=== PATIENT | male | born 1980 | race Caucasian/White ===

== ENCOUNTER 2021-02-20 20:19 | Emergency (ER) | payer BC ==
[~2021-02-20] VITALS: Ht 167.6 cm; Wt 79.8 kg
[2021-02-20 20:32] VITALS: BP 150/87
--- NOTE | 2021-02-20 20:32 | NUR ---
to bed ambulatory
--- NOTE | 2021-02-20 20:40 | NUR ---
RECEIVED IN BED 2 WITH C/O EYE PAIN AFTER SOAP PACKAGE WENT INTO OD. REDNESS NOTED WITH (+) PHOTOPHOBIA
[2021-02-20] MEDS ORDERED: FLUORESCEIN OPTH STRIP 1 MG OP ONE (20:50)
[2021-02-20] MEDS ORDERED: TETRACAINE HCL/PF 0.5% OPTH 4 ML BTL OP ONE (20:50)
--- NOTE | 2021-02-20 21:43 | NUR ---
Dr. Salmeron examining patient.
[2021-02-20] MEDS ORDERED: ERYT5OIN51 OP (21:59)
[2021-02-20 22:05] VITALS: BP 150/87
--- NOTE | 2021-02-20 22:05 | NUR ---
Patient discharged with v/s stable. Written and verbal after care instructions given and explained. Patient alert, oriented and verbalized understanding of instructions. Ambulatory with steady gait. All questions addressed prior to discharge. ID band removed. Patient advised to follow up with PMD. Rx of ERYTHROMYCIN OINTMENT given. Patient educated on indication of medication including possible reaction and side effects. Opportunity to ask questions provided and answered.
== END 2021-02-20 22:05 | disposition home or self-care (01) ==
LOC: MED 20:19
DX: S05.01XA Injury of conjunctiva and corneal abrasion without foreign body, right eye, initial encounter (principal); Z77.098 Contact with and (suspected) exposure to other hazardous, chiefly nonmedicinal, chemicals; Z79.899 Other long term (current) drug therapy; X58.XXXA Exposure to other specified factors, initial encounter; Y93.89 Activity, other specified; Y92.89 Other specified places as the place of occurrence of the external cause; Y99.8 Other external cause status
CPT/HCPCS: 99283